=== PATIENT | female | born 1970 | race Caucasian/White ===

== ENCOUNTER 2021-02-09 23:02 | Emergency (ER) | payer OTHER ==
[2021-02-09] MEDS ORDERED: KETOROLAC TROMETHAMINE 60 MG/2 ML VIAL IM ONE (23:12)
[2021-02-09 23:14] VITALS: BP 104/63; PULSE 63; TEMP 99; BMI 24.4
== END 2021-02-09 23:34 | disposition home or self-care (01) ==
LOC: FER 23:02
PROC: 3E0233Z Introduction of Anti-inflammatory into Muscle, Percutaneous Approach (ICD-10-PCS; principal; 2021-02-09)
DX: N76.4 Abscess of vulva (principal)
CPT/HCPCS: 96372; 99283-25

== ENCOUNTER 2021-10-07 09:40 | Emergency (ER) | payer OTHER ==
[2021-10-07 09:45] VITALS: BMI 17.8
[2021-10-07] MEDS ORDERED: ACETAMINOPHEN 1000 MG/100 ML BAG IVPB ONE (09:56)
[2021-10-07] MEDS ORDERED: ACETAMINOPHEN INJECTION 100 ML IVPB ONE (10:06)
[2021-10-07 10:12] LABS: HCG,QUALITATIVE URINE Negative
[2021-10-07 10:31] LABS: EPITHELIAL CELLS RARE /hpf
[2021-10-07] MEDS ORDERED: KETOROLAC TROMETHAMINE 15 MG/ML VIAL IVPUSH ONE (10:33)
[2021-10-07] MEDS ORDERED: KETOROLAC TROMETHAMINE 15 MG/ML VIAL ONE (10:39)
[2021-10-07 11:33] VITALS: BP 111/57; PULSE 59; TEMP 98.5
[2021-10-07 12:15] LABS: BASO % 0.3 % (0-2.0); EOS % 1.3 % (0-4.5); HEMATOCRIT 34.1 % (32.4-45.2); HEMOGLOBIN 11.4 GM/dL (10.7-15.3); LYMPH % 37.6 % (8-40); MCH 27.7 pg (25.7-33.7); MCHC 33.5 g/dl (32.0-36.0); MEAN CELL VOLUME 82.8 fl (80-96); MEAN PLT VOLUME 8.8 fl (7.5-11.1); MONO % 6.7 % (3.8-10.2); NEUT % 54.1 % (42.8-82.8); PLATELET COUNT 271 10^3/uL (134-434); RBC 4.13 M/mm3 (3.60-5.2); RDW 16.8 % (11.6-15.6); WHITE BLOOD COUNT 7.6 K/mm3 (4.0-10.0)
[2021-10-07 12:16] LABS: BILIRUBIN,TOTAL 0.4 mg/dl (0.2-1); CALCIUM 8.6 mg/dl (8.5-10); CREATININE 0.6 mg/dl (0.55-1.3); TOT PROT 6.7 g/dl (6.4-8.2)
[2021-10-07] MEDS ORDERED: oxyCODONE HCL 5 MG TABLET PO ONE (13:19)
[2021-10-07] MEDS ORDERED: oxyCODONE HCL 5 MG TABLET ONE (13:25)
== END 2021-10-07 13:45 | disposition home or self-care (01) ==
LOC: FER 09:40
PROC: 3E033GC Introduction of Other Therapeutic Substance into Peripheral Vein, Percutaneous Approach (ICD-10-PCS; principal; 2021-10-07)
DX: N20.0 Calculus of kidney (principal)
CPT/HCPCS: 36415; 74176-TC; 80053; 81003; 81015; 84703; 85025; 96374; 96375; 99285-25

== ENCOUNTER 2022-04-06 23:11 | Emergency (ER) | payer SELFPAY ==
[2022-04-06 23:21] VITALS: BP 124/76; PULSE 64; RESP 16; TEMP 99; BMI 25.8
[2022-04-06] MEDS ORDERED: IBUPROFEN 600 MG TABLET (FP) PO ONE ×2 (23:40→23:42)
== END 2022-04-06 23:46 | disposition home or self-care (01) ==
LOC: FER 23:11
PROC: 0U9MXZZ Drainage of Vulva, External Approach (ICD-10-PCS; principal; 2022-04-06)
DX: N75.0 Cyst of Bartholin's gland (principal)
CPT/HCPCS: 99283-25

== ENCOUNTER 2023-08-09 23:30 | Emergency (ER) | payer SELFPAY ==
[2023-08-09 23:38] VITALS: BP 115/74; PULSE 74; RESP 18; TEMP 98.8; BMI 25.9
== END 2023-08-10 00:46 | disposition home or self-care (01) ==
LOC: FER 23:30
PROC: 0H98XZZ Drainage of Buttock Skin, External Approach (ICD-10-PCS; principal; 2023-08-09)
DX: K62.89 Other specified diseases of anus and rectum (principal); K64.5 Perianal venous thrombosis
CPT/HCPCS: 99283-25